=== PATIENT | male | born 1970 | race Caucasian/White ===

== ENCOUNTER 2016-08-08 22:54 | Emergency (ER) | payer OTHER ==
[~2016-08-08 22:54] MED LIST: PERCOCET 5-3251 EACH PO
[2016-08-08] MEDS ORDERED: ZYLOPRIM100 M1 PO (23:03)
[2016-08-08] MEDS ORDERED: IBUPROFEN200 M2 PO (23:04)
[2016-08-08] MEDS ORDERED: ZERTEC (23:04)
[2016-08-08 23:28] LABS: BASO % 0.2 % (0-2); EOS % 4.9 % (0-7); EOSINOPHIL ABSOLUTE COUNT 0.4 tho/cmm (0.0-0.7); HCT-HEMATOCRIT 44.6 % (36.0-53.5); IMMATURE GRANULOCYTES ABSOLUTE 0.02 tho/cmm (0-0.03); IMMATURE GRANULOCYTES PERCENT 0.2 % (0-0.3); LYMPH % 48.6 % (20-45); LYMPH ABSOLUTE COUNT 3.9 tho/cmm (0.8-4.5); MCH (MEAN CORPUSCULAR HGB) 29.4 pg (28.0-32.0); MCHC MEAN CORPUSCULAR HGB CONC 35.9 % (32.0-36.0); MCV (MEAN CELL VOLUME) 81.8 fl (82.0-96.0); MONO % 8.8 % (0-12); MONOCYTE ABSOLUTE COUNT 0.7 tho/cmm (0.0-1.2); NEUTROPHILS % 37.3 % (40-80); PLATELET COUNT 213 tho/cmm (150-450); RED BLOOD COUNT 5.45 mil/cmm (4.40-5.70); RED CELL DISTRIBUTION WIDTH 13.4 % (12.4-16.4)
[2016-08-08 23:44] LABS: ANION GAP 11 mmol/L (0-20); BLOOD UREA NITROGEN 12 mg/dl (6-24); CALCIUM 8.6 mg/dl (8.5-10.5); CARBON DIOXIDE-VENOUS 26 mmol/L (22-32); CHLORIDE 109 mmol/l (96-110); CREATININE 0.92 mg/dl (0.60-1.30); GLUCOSE 99 mg/dL (70-110); SODIUM 142 mmol/L (135-145); eGFR VALUE FOR BLACK >90 mL/Min
[2016-08-08 23:53] LABS: POTASSIUM 4.1 mmol/L (3.7-5.1)
[2016-08-09] MEDS ORDERED: IBUPROFEN800 M1 PO (01:03)
== END 2016-08-09 01:26 ==
LOC: EDMED 22:54
PROVIDERS: Emergency Medicine
DX: R09.1 Pleurisy (principal); Z91.048 Other nonmedicinal substance allergy status
CPT/HCPCS: J1885; J7030

== ENCOUNTER 2016-11-17 22:30 | Emergency (ER) | payer OTHER ==
[~2016-11-17] VITALS: Ht 185.4 cm; Wt 102.0 kg
[~2016-11-17 22:30] MED LIST changes: +IBUPROFEN200 M2 PO; +IBUPROFEN800 M1 PO; +ZERTEC; +ZYLOPRIM100 M1 PO
[2016-11-17] MEDS ORDERED: PREDNISONE20 M1 PO (23:08)
[2016-11-17] MEDS ORDERED: NORCO 5/3251 TAB PO (23:08)
== END 2016-11-17 23:25 ==
LOC: EDMED 22:30
DX: M10.9 Gout, unspecified (principal)